=== PATIENT | female | born 1935 | race Caucasian/White ===

== ENCOUNTER 2025-03-05 07:56 | Emergency (ER) | payer MEDICARE, OTHER ==
[~2025-03-05] VITALS: Ht 160 cm; Wt 56.8 kg
[~2025-03-05 07:56] MED LIST: ALD25T PO; ASPI-1071 PO; COR3.125T PO; DIT5T PO; ENAL5TAB85 PO; EST1T PO; LEVO-65 PO
[2025-03-05 08:18] VITALS: TEMP 98.4
--- NOTE | 2025-03-05 08:32 | Physician Documentation ---
History of Present Illness ~ Chief Complaint: Rectal Pain Stated Complaint: HEMORRHOID PAIN Time Seen by MD: 08:32 Primary Medical Doctor: Tim Gage Mode of Arrival: Wheelchair HPI 89-year-old female presenting with rectal pain She tells me that her symptoms started yesterday. She thinks that she has a painful hemorrhoid. She tried some preparation H without much relief. She has been constipated and straining a lot recently. No bleeding from her bottom. No nausea or vomiting. No abdominal pain at this time. No other acute concerns. Medication Reconciliation Allergies: Coded Allergies: furosemide (Unverified Allergy, Intermediate, ITCHING AND RASH, 03/05/25) Uncoded Allergies: DUST (Allergy, Intermediate, 03/31/12) GRASSES (Allergy, Intermediate, 03/31/12) MOLD (Allergy, Intermediate, 03/31/12) Scheduled Aspirin* (Ecotrin*), 325 MG PO DAILY, (Reported) Carvedilol* (Coreg*), 3.125 MG PO BID, (Reported) Enalapril Maleate* (Vasotec*), 5 MG PO BID, (Reported) Estradiol* (Estrace*), 2 MG PO DAILY, (Reported) Levofloxacin (Levofloxacin), 500 MG PO DAILY Oxybutynin Chloride* (Ditropan*), 5 MG PO BID, (Reported) Spironolactone* (Aldactone*), 25 MG PO DAILY, (Reported) Past Medical History Past Medical History: Coronary Artery Disease, Hypertension Past Surgical History: hysterectomy Alcohol Use: None Drug Use: none Lives with: Spouse Lives In: Home Occupation: retired Review of Systems Constitutional: Denies: fever Gastrointestinal: Reports: rectal pain; Denies: abdominal pain Physical Exam Vital Signs: Temperature: 98.4, Source: Oral, Heart Rate: 71, Respiratory Rate: 14, BP: 123/69, Pulse Oximetry: 94, Weight: 56.820 Oxygen Flow Rate: 0 Physical Exam General: This is a pleasant and nontoxic appearing elderly woman Heart: Regular rate and rhythm, normal-appearing peripheral perfusion Lungs: normal work of breathing, normal oxygen saturation on room air Abdomen: Soft, nondistended, no significant lower abdominal tenderness : Rectal exam was performed with a nurse diagram clerk present at all times. The patient does not have any evidence of external hemorrhoid or fissure. She does have a hard stool ball in the rectal vault Neuro: Alert and oriented Psychiatric: Calm and cooperative with exam Procedures Procedures Procedure note: Disimpaction Indication: Fecal impaction Procedure: The patient was placed in a left lateral decubitus position. Using lidocaine jelly, a rectal exam was performed and a hard stool ball was palpated. Digital disimpaction was performed. A Fleet's enema was placed. Following this, the patient had a large bowel movement and felt better Progress Results/Orders Results/Orders Completed Orders - BISI BRIGGS MD Lidocaine 2% Jelly 11ml Syr (Glydo-Lidoc (03/05/25 09:10) Vital Signs 03/05/25 03/05/25 03/05/25 03/05/25 07:59 08:10 08:18 12:25 Temp 97.9 98.4 Pulse 79 71 67 Resp 18 14 16 B/P (MAP) 152/79 123/69 (87) Pulse Ox 97 94 98 O2 Flow Rate 0 0 Medical Decision Making Additional Comments The patient presents with rectal pain. Per her exam it appears she has fecal impaction. She was disimpact is successfully with resolution of her pain. No evidence of hemorrhoid or other dangerous process. I do not feel that any further workup or testing is indicated. She will be discharged with a stool softener and outpatient follow up. Departure Time of Disposition: 12:12 Disposition: 01 HOME / SELF CARE / HOMELESS Impression: Primary Impression: Rectal pain Additional Impression: Fecal impaction in rectum Condition: Improved Discharge Instructions: Fecal Impaction Referrals: NO PRIMARY CARE PROVIDER (PCP) Education Educated: Patient Educated regarding: diagnosis, treatment, need for follow up Signature Scribe Signature: na Attestation: BISI Gandhi MD Mar 05, 2025 08:32
[2025-03-05] MEDS ORDERED: LIDOcaine 2% jelly 6ml syringe ***for topical use only MM ONE (09:05)
[2025-03-05] MEDS: LidoCAINE 2% Topical Jelly 11mL syringe (UROJET) MM ONE (10:08)
[2025-03-05 12:25] VITALS: PULSE 67; RESP 16; O2SAT 98
== END 2025-03-05 12:28 | disposition home or self-care (01) ==
LOC: ER 07:57
DX: K56.41 Fecal impaction (principal); I10 Essential (primary) hypertension; I25.10 Atherosclerotic heart disease of native coronary artery without angina pectoris; Z88.8 Allergy status to other drugs, medicaments and biological substances; Z90.710 Acquired absence of both cervix and uterus; Z79.82 Long term (current) use of aspirin
CPT/HCPCS: 99284; C1758